=== PATIENT | male | born 1995 ===

== ENCOUNTER 2017-04-10 18:54 | Emergency (ER) | payer BC ==
[2017-04-10 19:49] LABS: Bilirubin Negative (Negative); Blood, Urine Negative (Negative); Glucose, Urine (Dipstick) Negative (Negative); Ketone, Urine Negative (Negative); Nitrite Negative (Negative); Protein, Urine (Dipstick) Negative (Neg-Trace); Urobilinogen 0.2 mg/dL (0.2-1.0)
[2017-04-10 20:09] LABS: #Basophils 0.1 thou/uL (0.0-0.2); #Lymphocytes 1.8 thou/uL (1.20-3.40); #Monocytes 1.3 thou/uL (0.11-0.59); #Neutrophils 14.4 thou/uL (1.40-6.50); %Basophils 0.3 % (0.0-1.0); %Eosinophils 0.2 % (0.0-10.0); %Lymphocytes 10.4 % (21.0-51.0); %Monocytes 7.2 % (0.0-10.0); Hematocrit 54.4 % (42.0-52.0); Mean Platelet Volume 6.8 fL (7.4-10.4); Red Blood Cell (RBC) Count 5.65 mill/uL (4.70-6.10); White Blood Cell (WBC) Count 17.6 thou/uL (4.8-10.8)
[2017-04-10 20:10] LABS: Lactic Acid - Sepsis 3.4 mmol/L (0.5-2.2)
[2017-04-10 20:14] LABS: Anion Gap 17 mmol/L (10-20); BUN (Urea Nitrogen) 11 mg/dL (8.9-20.6); Calc. Creatinine Clearance 0 mL/min (70-130); Calcium 9.9 mg/dL (7.8-10.44); Carbon Dioxide 25 mmol/L (22-29); Chloride 99 mmol/L (98-107); Estimated GFR-MDRD Greater than 90
--- NOTE | 2017-04-10 21:53 | RAD ---
CHEST TWO VIEW 04/10/17 HISTORY: Weakness. COMPARISON: None. FINDINGS: The lungs are without focal air space consolidation, pneumothorax or effusion. The cardiac silhouette and mediastinal contours are within normal limits. IMPRESSION: No acute intrathoracic abnormality. POS: [facility]
--- NOTE | 2017-04-10 22:50 | CT ---
CT ABDOMEN AND PELVIS WITHOUT CONTRAST STONE PROTOCOL 04/10/17 HISTORY: Pain. COMPARISON: None available. FINDINGS: The lung gases are clear. No pericardial effusion. No hydroureteronephrosis or nephroureterolithiasis. No secondary to evidence of recently passed stone . Urinary bladder is within calculus. Noncontrast evaluation of the spleen, liver, gallbladder, pancreas, adrenal glands are all unremarkab le. Aortoiliac contour is normal. no free intraperitoneal gas or fluid. No dilated loops of large or small bowel. Small noninflamed lymph nodes adjacent to the ascending col on. There are numerous ileocolic lymph nodes. The appendix is visualized and is normal. IMPRESSION: 1. No nephroureterolithiasis or hydroureteronephrosis. No secondary evidence of recently passed stone. 2. No acute inflammatory process in the abdomen or pelvis. POS: [facility]
[2017-04-10 23:04] LABS: #Eosinphils 0.1 thou/uL (0.0-0.7); #Neutrophils 10.7 thou/uL (1.40-6.50); %Basophils 0.3 % (0.0-1.0); %Eosinophils 0.5 % (0.0-10.0); %Lymphocytes 14.6 % (21.0-51.0); %Monocytes 7.4 % (0.0-10.0); Hematocrit 48.3 % (42.0-52.0); Mean Platelet Volume 6.4 fL (7.4-10.4); Red Blood Cell (RBC) Count 4.96 mill/uL (4.70-6.10); White Blood Cell (WBC) Count 13.9 thou/uL (4.8-10.8)
== END 2017-04-10 23:43 | disposition home or self-care (01) ==
LOC: ERS 18:54
DX: R10.9 Unspecified abdominal pain (principal); R00.0 Tachycardia, unspecified; F98.8 Other specified behavioral and emotional disorders with onset usually occurring in childhood and adolescence; F17.200 Nicotine dependence, unspecified, uncomplicated; Z79.899 Other long term (current) drug therapy
CPT/HCPCS: 36415; 71020; 74176; 80048; 81003; 83605; 85025; 87040; 93005; 96360; 96361